=== PATIENT | female | born 1985 | race African-American/Black ===

== ENCOUNTER 2019-02-13 18:46 | Emergency (ER) | payer OTHER ==
[2019-02-13 18:55] VITALS: BP 134/93; PULSE 71; TEMP 98.4; BMI 27.8
--- NOTE | 2019-02-13 19:49 | PDOC ---
Suture Removal/Wound Check HPI - History of Present Illness Chief Complaint: Suture/Staple Removal (other) Stated Complaint: SUTURE REMOVEL Time Seen by Provider: 02/13/19 18:59 History Source: Yes: Patient Treated at: Other ED Date of Last ED visit: 02/05/19 - Previous ED Treatment Type of procedure performed on last visit: Yes: Laceration Repair Past History - Past Medical History Allergies/Adverse Reactions: Allergies Allergy/AdvReac Type Severity Reaction Status Date / Time No Known Allergies Allergy Verified 02/13/19 18:55 Asthma: No Cancer: No Cardiac Disorders: No CVA: No COPD: No DVT: No Dementia: No Diabetes: No Dialysis: No GI Disorders: No Disorders: No HTN: No Hypercholesterolemia: No Kidney Stones: No Liver Disease: No Psychiatric Problems: No Seizures: No Thyroid Disease: Yes Lung CA: No - Surgical History Abdominal Surgery: No Appendectomy: No Cardiac Surgery: No Cholecystectomy: No Gastric Stapling: No GI Surgery: No Lung Surgery: No Neurologic Surgery: No - Reproductive History (#): 4 Para: 1 Cervical CA: No Dysfunctional Uterine Bleeding: No Ectopic : No Endometrial CA: No Polycystic Ovaries: No Therapeutic (s) & number: No Tubal Ligation: No Spontaneous : 1 - Immunization History Td Vaccination: Yes TDAP Vaccination: Yes Immunization Up to Date: Yes - Psycho Social/Smoking Cessation Hx Smoking Status: Yes (1/2 pack of cigarettes per day) Smoking History: Current every day smoker Have you smoked in the past 12 months: Yes Number of Cigarettes Smoked Daily: 10 Information on smoking cessation initiated: No Hx Alcohol Use: Yes (Socially, 1 drink per day) Drug/Substance Use Hx: No Substance Use Type: None *Review of Systems - Review of Systems Constitutional: No: Chills, Fever Integumentary: No: Erythema *Physical Exam - Vital Signs Last Vital Signs Temp Pulse Resp BP Pulse Ox 98.4 F 71 18 134/93 100 02/13/19 18:52 02/13/19 18:52 02/13/19 18:52 02/13/19 18:52 02/13/19 18:52 - Physical Exam General Appearance: Yes: Appropriately Dressed. No: Apparent Distress HEENT: positive: Normal Voice Neck: positive: Supple Respiratory/Chest: negative: Respiratory Distress Integumentary: positive: Dry, Warm, Other (well healing ~8cm linear lac that extends for R ala to L maxilla) Neurologic: positive: Fully Oriented, Alert, Normal Mood/Affect Medical Decision Making - Medical Decision Making 02/13/19 19:44 3-year-old female no significant history here for suture removal. Patient is s/ p lac repair a week ago at [facility]. No sig pain and no redness, discharge, f/c see exam Suture removal Well healing facial lac w/ >20 sutures intact Sutures removed w/ no complications Discharge - Discharge Information Problems reviewed: Yes Clinical Impression/Diagnosis: Visit for suture removal Condition: Good Disposition: HOME - Follow up/Referral - Patient Discharge Instructions Patient Printed Discharge Instructions: DI for Suture Removal - Post Discharge Activity
== END 2019-02-13 19:55 | disposition home or self-care (01) ==
LOC: JERFT 18:46
DX: Z48.02 Encounter for removal of sutures (principal)
CPT/HCPCS: 99281-25